=== PATIENT | male | born 1980 | race Two or more races ===

== ENCOUNTER 2018-06-28 07:58 | Inpatient (IN) | payer SELFPAY ==
[~2018-06-28] VITALS: Ht 165.1 cm; Wt 92.1 kg
--- NOTE | 2018-06-28 08:42 | PHYS DOC ---
Past Medical History Past Medical History: Diabetes-Type II, Hypertension Past Surgical History: No Surgical History Alcohol Use: Heavy Drug Use: None Adult General Chief Complaint Chief Complaint: ABDOMINAL PAIN HPI HPI Patient is a 38 year old Male who presents with vomiting, dizziness, tremors started yesterday. Patient states that he drinks 10-12 beers a day he's been given the last 2 weeks. Patient states that in the past he has had a problem drinking but hadn't been drinking much. Patient rates his pain 8 out of 10 and states it is burning pain. Review of Systems Review of Systems Constitutional: Denies fever or chills [] Eyes: Denies change in visual acuity, redness, or eye pain [] HENT: Denies nasal congestion or sore throat [] Respiratory: Denies cough or shortness of breath [] Cardiovascular: No additional information not addressed in HPI [] GI: Abdominal pain, nausea, vomiting. Denies bloody stools or diarrhea [] : Denies dysuria or hematuria [] Musculoskeletal: Denies back pain or joint pain [] Integument: Denies rash or skin lesions [] Neurologic: Denies headache, focal weakness or sensory changes. Tremors and numbness and tingling. [] Endocrine: Denies polyuria or polydipsia [] All other systems were reviewed and found to be within normal limits, except as documented in this note. Current Medications Current Medications Current Medications Medications (Trade) Dose Ordered Sig/Meek Start Time Stop Time Status Last Admin Dose Admin Chlordiazepoxide (Librium) 50 mg 1X ONCE 06/28/18 09:00 06/28/18 09:01 DC 06/28/18 09:17 50 MG Famotidine (Pepcid Vial) 20 mg 1X ONCE 06/28/18 09:00 06/28/18 09:01 DC 06/28/18 09:17 20 MG Magnesium Sulfate 50 ml @ 25 mls/hr 1X ONCE 06/28/18 11:30 06/28/18 13:29 Ondansetron HCl (Zofran) 4 mg 1X ONCE 06/28/18 09:00 06/28/18 09:01 DC 06/28/18 09:17 4 MG Allergies Allergies Allergies Coded Allergies Type Severity Reaction Last Updated Verified No Known Drug Allergies 02/11/15 No Physical Exam Physical Exam Constitutional: Well developed, well nourished, no acute distress, non-toxic appearance. [] HENT: Normocephalic, atraumatic, bilateral external ears normal, oropharynx moist, no oral exudates, nose normal. [] Eyes: PERRLA, EOMI, conjunctiva normal, no discharge. [] Neck: Normal range of motion, no tenderness, supple, no stridor. [] Cardiovascular:Heart rate regular rhythm, no murmur [] Lungs & Thorax: Bilateral breath sounds clear to auscultation [] Abdomen: Bowel sounds normal, soft, Bilateral upper abdominal and left lower tenderness, no masses, no pulsatile masses. [] Skin: Warm, dry, no erythema, no rash. Slightly diaphoretic. Back: No tenderness, no CVA tenderness. [] Extremities: No tenderness, no cyanosis, no clubbing, ROM intact, no edema. [] Neurologic: Alert and oriented X 3, normal motor function, normal sensory function, no focal deficits noted. Intermittent tremors.[] Psychologic: Affect normal, judgement normal, mood normal. [] Current Patient Data Vital Signs Vital Signs Date Time Temp Pulse Resp B/P (MAP) Pulse Ox O2 Delivery O2 Flow Rate FiO2 06/28/18 10:24 86 26 149/84 (105) 95 Room Air 06/28/18 08:23 99.0 99.0 Lab Values Laboratory Tests Test 06/28/18 08:38 06/28/18 08:40 06/28/18 09:28 Prothrombin Time 18.0 SEC (11.7-14.0) H Prothrombin Time INR 1.6 (0.8-1.1) H PTT 43 SEC (24-38) H White Blood Count 3.2 x10^3/uL (4.0-11.0) L Red Blood Count 4.89 x10^6/uL (4.30-5.70) Hemoglobin 16.5 g/dL (13.0-17.5) Hematocrit 46.8 % (39.0-53.0) Mean Corpuscular Volume 96 fL (79-100) Mean Corpuscular Hemoglobin 34 pg (25-35) Mean Corpuscular Hemoglobin Concent 35 g/dL (31-37) Red Cell Distribution Width 15.1 % (11.5-14.5) H Platelet Count 39 x10^3/uL (140-400) L Neutrophils (%) (Auto) 53 % (31-73) Lymphocytes (%) (Auto) 39 % (24-48) Monocytes (%) (Auto) 7 % (0-9) Eosinophils (%) (Auto) 0 % (0-3) Basophils (%) (Auto) 1 % (0-3) Neutrophils # (Auto) 1.7 x10^3uL (1.8-7.7) L Lymphocytes # (Auto) 1.2 x10^3/uL (1.0-4.8) Monocytes # (Auto) 0.2 x10^3/uL (0.0-1.1) Eosinophils # (Auto) 0.0 x10^3/uL (0.0-0.7) Basophils # (Auto) 0.0 x10^3/uL (0.0-0.2) Sodium Level 134 mmol/L (136-145) L Potassium Level 3.7 mmol/L (3.5-5.1) Chloride Level 97 mmol/L (98-107) L Carbon Dioxide Level 25 mmol/L (21-32) Anion Gap 12 (6-14) Blood Urea Nitrogen 5 mg/dL (8-26) L Creatinine 0.6 mg/dL (0.7-1.3) L Estimated GFR (Cockcroft-Gault) 150.0 BUN/Creatinine Ratio 8 (6-20) Glucose Level 278 mg/dL (70-99) H Calcium Level 7.7 mg/dL (8.5-10.1) L Magnesium Level 1.7 mg/dL (1.8-2.4) L Total Bilirubin 2.7 mg/dL (0.2-1.0) H Aspartate Amino Transferase (AST) 165 U/L (15-37) H Alanine Aminotransferase (ALT) 133 U/L (16-63) H Alkaline Phosphatase 198 U/L (46-116) H Total Protein 8.3 g/dL (6.4-8.2) H Albumin 3.4 g/dL (3.4-5.0) Albumin/Globulin Ratio 0.7 (1.0-1.7) L Lipase 147 U/L (73-393) Ethyl Alcohol Level 107 mg/dL (0-10) H Urine Collection Type Void Urine Color Hannah Urine Clarity Clear Urine pH 7.5 Urine Specific [place] 1.015 Urine Protein 100 mg/dL (NEG-TRACE) Urine Glucose (UA) 500 mg/dL (NEG) Urine Ketones (Stick) Negative mg/dL (NEG) Urine Blood Negative (NEG) Urine Nitrite Negative (NEG) Urine Bilirubin Negative (NEG) Urine Urobilinogen Dipstick 1.0 mg/dL (0.2 mg/dL) Urine Leukocyte Esterase Negative (NEG) Urine RBC 0 /HPF (0-2) Urine WBC Occ /HPF (0-4) Urine Bacteria 0 /HPF (0-FEW) Urine Opiates Screen Neg (NEG) Urine Methadone Screen Neg (NEG) Urine Barbiturates Neg (NEG) Urine Phencyclidine Screen Neg (NEG) Urine Amphetamine/Methamphetamine Neg (NEG) Urine Benzodiazepines Screen Neg (NEG) Urine Cocaine Screen Neg (NEG) Urine Cannabinoids Screen Neg (NEG) Urine Ethyl Alcohol Pos (NEG) Laboratory Tests 06/28/18 08:40 Laboratory Tests 06/28/18 08:40 EKG EKG Sinus Rhythm, No STEMI[] Interpretation Time: [address] Anne Radiology/Procedures Radiology/Procedures [facility] Impressions: [facility] [address] [place] [address] IMAGING REPORT Signed PATIENT: DARRICK SANTILLAN ACCOUNT: [id number] : 1980 LOCATION: ER AGE: 38 SEX: M EXAM STATUS: REG ER ORD. PHYSICIAN: ARCHANA DELGADO APRN REASON: ETOH/ ELEVATED LIVER ENZYMES PROCEDURE: ABDOMEN COMPLETE ABDOMEN COMPLETE History: EtOH, elevated liver enzymes Comparison: None. Findings: Multiple sonographic images of the abdomen are submitted. There is diffuse coarsening of the echotexture of the liver. Abdominal aorta and inferior vena cava are poorly visualized due to bowel gas, limited segmental visualization of the inferior vena cava. Right lobe of liver is enlarged about 22 cm longitudinal. Pancreas is poorly visualized. Right kidney measured 13.6 x 6 x 5.5 cm. Left kidney measured 14.2 x 6.4 x 7.3 cm. There is no hydronephrosis of either kidney. Gallbladder is present without intraluminal abnormality, wall thickening, demonstrable pericholecystic fluid. Common bile duct is within normal limits at 0.5 cm. Spleen is enlarged about 16.2 x 5.8 x 5.6 m. No free fluid is demonstrated. Impression: 1. There is hepatosplenomegaly. There is hepatic steatosis. 2. Midline structures are poorly visualized due to bowel gas. Electronically signed by: Lesvia Clemente MD (06/28/2018 10:50 AM) [id number] DICTATED and SIGNED BY: LESVIA CLEMENTE MD DATE: 06/28/18 1048 Course & Med Decision Making Course & Med Decision Making Patient is a 38 year old Male who presents with vomiting, dizziness, tremors started yesterday. Patient states that he drinks 10-12 beers a day he's been given the last 2 weeks. Patient states that in the past he has had a problem drinking but hadn't been drinking much. Patient rates his pain 8 out of 10 and states it is burning pain. Patient has bilateral upper abdominal tenderness and lower left abdominal tenderness. Patient had a bowel movement yesterday that was normal for him. Patient is alert and oriented. Patient walks with steady gait. Patient does not have tremors and a half states his hand straight out. Patient is neurologically intact. Patient denies any numbness or tingling. Patient denies any chest pain or shortness of air. Patient has no extremity edema. Patient states he does take antihypertensive medication that he can't remember what else called and takes insulin. Patient denies any drug allergies. Patient denies any other past medical history or surgeries. Patient's skin is pink warm and slightly diaphoretic. sclera of bilateral eyes are yellow tinged. In the room patient's head began to tremor but only came intermittently. Patient denies any visual changes. EKG shows Sinus rhythm and no STEMI and was read by Dr Anne. Patient is given NS Bolus, Librium, Ondansetron and Pepcid in the ED. ETOH level is 107. Abdomen US complete shows 1. There is hepatosplenomegaly. There is hepatic steatosis. 2. Midline structures are poorly visualized due to bowel gas. PT IS 18, INR 1.6, APTT 43. Patient to be admitted and will follow up with GI. Patient is alert, oriented. and stable. I did go over this patient with Dr Anne and he agrees with admission. [] Dragon Disclaimer Dragon Disclaimer This electronic medical record was generated, in whole or in part, using a voice recognition dictation system. Departure Departure Impression: Primary Impression: Alcohol abuse Additional Impression: Liver enzyme elevation Disposition: ADMITTED INPATIENT Condition: STABLE Referrals: NO PCP (PCP) TRAM BLAS MD Patient Instructions: Alcohol Problems, Alcohol Withdrawal, Alcoholic Liver Disease, [id number] Additional Instructions: FOLLOW UP WITH GI. DO NOT DRINK ANYMORE ETOH. Problem Qualifiers ARCHANA DELGADO FORK LIFT TRUCK OPERATOR Jun 28, 2018 08:42
[2018-06-28] MEDS ORDERED: FAMOTIDINE 20 MG/2 ML VIAL IVP ONE (09:00)
[2018-06-28] MEDS ORDERED: chlordiazePOXIDE HCL 25 MG CAPSULE PO ONE (09:00)
[2018-06-28] MEDS ORDERED: ONDANSETRON PF 4 MG/2 ML VIAL. IV ONE (09:00)
[2018-06-28 09:04] LABS: CALCIUM 7.7 mg/dL (8.5-10.1); CREATININE 0.6 mg/dL (0.7-1.3); POTASSIUM 3.7 mmol/L (3.5-5.1)
[2018-06-28 09:10] LABS: ALBUMIN 3.4 g/dL (3.4-5.0); ALBUMIN/GLOBULIN RATIO 0.7 (1.0-1.7); MAGNESIUM 1.7 mg/dL (1.8-2.4); TOTAL BILIRUBIN 2.7 mg/dL (0.2-1.0); TOTAL PROTEIN 8.3 g/dL (6.4-8.2)
[2018-06-28 09:17] LABS: BASO % 1 % (0-3); EOS % 0 % (0-3); HEMATOCRIT 46.8 % (39.0-53.0); HEMOGLOBIN 16.5 g/dL (13.0-17.5); LYMPH # 1.2 x10^3/uL (1.0-4.8); LYMPH % 39 % (24-48); MEAN CORPUSCULAR HEMOGLOBIN 34 pg (25-35); MEAN CORPUSCULAR HGB CONC 35 g/dL (31-37); MEAN CORPUSCULAR VOLUME 96 fL (79-100); MONO # 0.2 x10^3/uL (0.0-1.1); MONO % 7 % (0-9); NEUT # 1.7 x10^3uL (1.8-7.7); NEUT % 53 % (31-73); PLATELET COUNT 39 x10^3/uL (140-400); RED BLOOD COUNT 4.89 x10^6/uL (4.30-5.70); RED CELL DISTRIBUTION WIDTH 15.1 % (11.5-14.5); WHITE BLOOD COUNT 3.2 x10^3/uL (4.0-11.0)
[2018-06-28 09:49] LABS: BARBITURATES NEG (NEG); BENZODIAZEPINES NEG (NEG); CANNABINOIDS NEG (NEG); COCAINE NEG (NEG); METHADONE NEG (NEG); OPIATES NEG (NEG); PHENCYCLIDINE NEG (NEG)
[2018-06-28 09:50] LABS: AMPHETAMINE/METHAMPHETAMINE NEG (NEG)
[2018-06-28 09:55] LABS: BILIRUBIN,URINE NEGATIVE (NEG); CLARITY,URINE CLEAR; COLOR,URINE AMBER; NITRITE,URINE NEGATIVE (NEG); PH,URINE 7.5; PROTEIN,URINE 100 mg/dL (NEG-TRACE)
[2018-06-28 10:13] LABS: BACTERIA,URINE 0 /HPF (0-FEW); RBC,URINE 0 /HPF (0-2); WBC,URINE OCC /HPF (0-4)
--- NOTE | 2018-06-28 10:54 | RAD ---
ABDOMEN COMPLETE History: EtOH, elevated liver enzymes Comparison: None. Findings: Multiple sonographic images of the abdomen are submitted. There is diffuse coarsening of the echotexture of the liver. Abdominal aorta and inferior vena cava are poorly visualized due to bowel gas, limited segmental visualization of the inferior vena cava. Right lobe of liver is enlarged about 22 cm longitudinal. Pancreas is poorly visualized. Right kidney measured 13.6 x 6 x 5.5 cm. Left kidney measured 14.2 x 6.4 x 7.3 cm. There is no hydronephrosis of either kidney. Gallbladder is present without intraluminal abnormality, wall thickening, demonstrable pericholecystic fluid. Common bile duct is within normal limits at 0.5 cm. Spleen is enlarged about 16.2 x 5.8 x 5.6 m. No free fluid is demonstrated. Impression: 1. There is hepatosplenomegaly. There is hepatic steatosis. 2. Midline structures are poorly visualized due to bowel gas. Electronically signed by: Valentino Thapa MD (06/28/2018 10:50 AM) [id number]
[2018-06-28] MEDS ORDERED: MAGNESIUM SULFATE 2GM 50 ML IV ONE (11:30)
[2018-06-28] MEDS ORDERED: ONDANSETRON PF 4 MG/2 ML VIAL. IV PRN (11:30)
--- NOTE | 2018-06-28 13:29 | EKG ---
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
--- NOTE | 2018-06-28 14:41 | PDOC2 ---
GI CONSULT Reason For Consult: Liver failure HPI: HPI: 38 y/o male. H/o heavy alcohol use in the past - has stopped drinking a few times, recently restarted and was drinking 10 beers a day x 10 days. Last drink was Thursday. Yesterday felt dizzy, had a headaches, vomited, had abd pain, and felt shaky. Came to ER for eval and was admitted. WBC 3.2, plt 39, INR 1.6, bili 2.7, AST 165, ALT 133, Alk Phos 198, ethyl alcohol 107. US: hepatosplenomegaly and hepatic steatosis w/ normal GB and CBD. Typically no issues w/ n/v or abd pain. Appetite and weight stable prior to onset of symptoms. Denies reflux/heartburn, dysphagia, diarrhea, constipation, hematemesis, hematochezia, melena. No NSAIDs. No GB, liver, or pancreas history. No previous EGD or colonoscopy. No NSAIDs. Says had labs as outpt last month and believes all were WNL. 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 PMH: PMH: HTN, IDDM FH: Family History: No pertinent hx (deneis GI cancers, liver disease) Social History: Smoke: No ALCOHOL: heavy Drugs: None ROS: GEN: +sweats HEENT: Denies blurred vision, sore throat CV: Denies chest pain RESP: Denies shortness of air, cough GI: Per HPI : Denies hematuria, dysuria ENDO: Denies weight changes NEURO: +dizziness MSK: +weakness SKIN: Denies jaundice, pruritus Vitals: Vitals: Vital Signs Date Time Temp Pulse Resp B/P (MAP) Pulse Ox O2 Delivery O2 Flow Rate FiO2 06/28/18 11:54 84 22 176/95 (122) 96 Room Air 06/28/18 08:23 99.0 99.0 Labs: Labs: Laboratory Tests Test 06/28/18 08:38 06/28/18 08:40 06/28/18 09:28 Prothrombin Time 18.0 SEC (11.7-14.0) Prothromb Time International Ratio 1.6 (0.8-1.1) Activated Partial Thromboplast Time 43 SEC (24-38) White Blood Count 3.2 x10^3/uL (4.0-11.0) Red Blood Count 4.89 x10^6/uL (4.30-5.70) Hemoglobin 16.5 g/dL (13.0-17.5) Hematocrit 46.8 % (39.0-53.0) Mean Corpuscular Volume 96 fL (79-100) Mean Corpuscular Hemoglobin 34 pg (25-35) Mean Corpuscular Hemoglobin Concent 35 g/dL (31-37) Red Cell Distribution Width 15.1 % (11.5-14.5) Platelet Count 39 x10^3/uL (140-400) Neutrophils (%) (Auto) 53 % (31-73) Lymphocytes (%) (Auto) 39 % (24-48) Monocytes (%) (Auto) 7 % (0-9) Eosinophils (%) (Auto) 0 % (0-3) Basophils (%) (Auto) 1 % (0-3) Neutrophils # (Auto) 1.7 x10^3uL (1.8-7.7) Lymphocytes # (Auto) 1.2 x10^3/uL (1.0-4.8) Monocytes # (Auto) 0.2 x10^3/uL (0.0-1.1) Eosinophils # (Auto) 0.0 x10^3/uL (0.0-0.7) Basophils # (Auto) 0.0 x10^3/uL (0.0-0.2) Sodium Level 134 mmol/L (136-145) Potassium Level 3.7 mmol/L (3.5-5.1) Chloride Level 97 mmol/L (98-107) Carbon Dioxide Level 25 mmol/L (21-32) Anion Gap 12 (6-14) Blood Urea Nitrogen 5 mg/dL (8-26) Creatinine 0.6 mg/dL (0.7-1.3) Estimated GFR (Cockcroft-Gault) 150.0 BUN/Creatinine Ratio 8 (6-20) Glucose Level 278 mg/dL (70-99) Calcium Level 7.7 mg/dL (8.5-10.1) Magnesium Level 1.7 mg/dL (1.8-2.4) Total Bilirubin 2.7 mg/dL (0.2-1.0) Aspartate Amino Transf (AST/SGOT) 165 U/L (15-37) Alanine Aminotransferase (ALT/SGPT) 133 U/L (16-63) Alkaline Phosphatase 198 U/L (46-116) Total Protein 8.3 g/dL (6.4-8.2) Albumin 3.4 g/dL (3.4-5.0) Albumin/Globulin Ratio 0.7 (1.0-1.7) Lipase 147 U/L (73-393) Ethyl Alcohol Level 107 mg/dL (0-10) Urine Collection Type Void Urine Color Hannah Urine Clarity Clear Urine pH 7.5 Urine Specific [place] 1.015 Urine Protein 100 mg/dL (NEG-TRACE) Urine Glucose (UA) 500 mg/dL (NEG) Urine Ketones (Stick) Negative mg/dL (NEG) Urine Blood Negative (NEG) Urine Nitrite Negative (NEG) Urine Bilirubin Negative (NEG) Urine Urobilinogen Dipstick 1.0 mg/dL (0.2 mg/dL) Urine Leukocyte Esterase Negative (NEG) Urine RBC 0 /HPF (0-2) Urine WBC Occ /HPF (0-4) Urine Bacteria 0 /HPF (0-FEW) Urine Opiates Screen Neg (NEG) Urine Methadone Screen Neg (NEG) Urine Barbiturates Neg (NEG) Urine Phencyclidine Screen Neg (NEG) Urine Amphetamine/Methamphetamine Neg (NEG) Urine Benzodiazepines Screen Neg (NEG) Urine Cocaine Screen Neg (NEG) Urine Cannabinoids Screen Neg (NEG) Urine Ethyl Alcohol Pos (NEG) Allergies: Coded Allergies: No Known Drug Allergies (Unverified , 02/11/15) Medications: Current Medications Medications (Trade) Dose Ordered Sig/Meek Route PRN Reason Start Time Stop Time Status Last Admin Dose Admin Ondansetron HCl (Zofran) 4 mg 1X ONCE IV 06/28/18 09:00 06/28/18 09:01 DC 06/28/18 09:17 Famotidine (Pepcid Vial) 20 mg 1X ONCE IVP 06/28/18 09:00 06/28/18 09:01 DC 06/28/18 09:17 Chlordiazepoxide (Librium) 50 mg 1X ONCE PO 06/28/18 09:00 06/28/18 09:01 DC 06/28/18 09:17 Magnesium Sulfate 50 ml @ 25 mls/hr 1X ONCE IV 06/28/18 11:30 06/28/18 13:29 DC 06/28/18 11:44 Imaging: Imaging: Abd US Findings: Multiple sonographic images of the abdomen are submitted. There is diffuse coarsening of the echotexture of the liver. Abdominal aorta and inferior vena cava are poorly visualized due to bowel gas, limited segmental visualization of the inferior vena cava. Right lobe of liver is enlarged about 22 cm longitudinal. Pancreas is poorly visualized. Right kidney measured 13.6 x 6 x 5.5 cm. Left kidney measured 14.2 x 6.4 x 7.3 cm. There is no hydronephrosis of either kidney. Gallbladder is present without intraluminal abnormality, wall thickening, demonstrable pericholecystic fluid. Common bile duct is within normal limits at 0.5 cm. Spleen is enlarged about 16.2 x 5.8 x 5.6 m. No free fluid is demonstrated. Impression: 1. There is hepatosplenomegaly. There is hepatic steatosis. 2. Midline structures are poorly visualized due to bowel gas. PE: GEN: NAD HEENT: Atraumatic, PERRL LUNGS: CTAB HEART: RRR ABD: NABS, S/ND/NT EXTREMITY: No edema SKIN: No rashes, no jaundice NEURO/PSYCH: A & O 3, anxious A/P: A/P: Dizziness, headache, vomiting, abd pain - better Alcohol abuse -labs note leukopenia, thrombocytopenia, coagulopathy, elevated LFTs -hepatic steatosis and hepatomegaly on US HTN, IDDM - per primary -- Withdrawal precautions, follow labs. 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 Needs to stop drinking. FRANNY REY Jun 28, 2018 14:41
[2018-06-28 15:19] VITALS: BP 153/39
[2018-06-28] MEDS: PANTOPRAZOLE 40 MG TABLET.DR. PO SCH (15:55)
[2018-06-28] MEDS: THIAMINE 100 MG TABLET. PO SCH (16:00)
[2018-06-28] MEDS: fentaNYL PF VIAL 100 MCG/2 ML VIAL IV PRN ×2 (16:01→21:02)
[2018-06-28 19:00] VITALS: BP 163/92
[2018-06-28] MEDS ORDERED: NPH,100V5 SQ (19:32)
[2018-06-28] MEDS ORDERED: LISI10TA2 PO (19:32)
[2018-06-28] MEDS: INSULIN GLARGINE 300 UNITS/3 ML INSULN.PEN. SQ SCH (21:00)
[2018-06-28 23:00] VITALS: BP 146/92
[2018-06-29 03:00] VITALS: BP 145/93
[2018-06-29 04:39] LABS: BASO % 1 % (0-3); EOS # 0.1 x10^3/uL (0.0-0.7); EOS % 2 % (0-3); HEMATOCRIT 46.7 % (39.0-53.0); HEMOGLOBIN 16.6 g/dL (13.0-17.5); LYMPH # 1.8 x10^3/uL (1.0-4.8); LYMPH % 45 % (24-48); MEAN CORPUSCULAR HEMOGLOBIN 35 pg (25-35); MEAN CORPUSCULAR HGB CONC 36 g/dL (31-37); MEAN CORPUSCULAR VOLUME 97 fL (79-100); MONO # 0.3 x10^3/uL (0.0-1.1); MONO % 8 % (0-9); NEUT # 1.8 x10^3uL (1.8-7.7); NEUT % 45 % (31-73); PLATELET COUNT 34 x10^3/uL (140-400); RED BLOOD COUNT 4.81 x10^6/uL (4.30-5.70); RED CELL DISTRIBUTION WIDTH 15.6 % (11.5-14.5)
[2018-06-29 05:14] LABS: ALBUMIN 3.2 g/dL (3.4-5.0); ALBUMIN/GLOBULIN RATIO 0.7 (1.0-1.7); CALCIUM 8.1 mg/dL (8.5-10.1); CREATININE 0.7 mg/dL (0.7-1.3); GFR 125.5; POTASSIUM 3.4 mmol/L (3.5-5.1); TOTAL BILIRUBIN 4.3 mg/dL (0.2-1.0); TOTAL PROTEIN 8.1 g/dL (6.4-8.2)
[2018-06-29 07:00] VITALS: BP 148/89
[2018-06-29] MEDS ORDERED: LISINOPRIL 10 MG TABLET PO SCH (09:00)
[2018-06-29] MEDS ORDERED: ONDANSETRON PF 4 MG/2 ML VIAL. IV PRN (09:15)
[2018-06-29] MEDS ORDERED: chlordiazePOXIDE HCL 25 MG CAPSULE PO PRN (09:15)
[2018-06-29] MEDS ORDERED: POTASSIUM CHLORIDE 20 MEQ TABLET.ER. PO ONE (09:15)
[2018-06-29] MEDS ORDERED: IBUPROFEN 200 MG TABLET. PO PRN (09:15)
[2018-06-29] MEDS ORDERED: ZOLPIDEM 5 MG TABLET. PO PRN (09:15)
[2018-06-29] MEDS ORDERED: NICOTINE 21MG PATCH. TD PRN (09:15)
[2018-06-29] MEDS ORDERED: ONDANSETRON ODT 4 MG TAB.RAPDIS. PO PRN (09:15)
[2018-06-29] MEDS ORDERED: DEXTROSE 50% 25 GM / 50ML DISP.SYRIN. IV PRN (09:30)
[2018-06-29] MEDS: PANTOPRAZOLE 40 MG TABLET.DR. PO SCH (09:52)
[2018-06-29] MEDS: THIAMINE 100 MG TABLET. PO SCH (09:52)
[2018-06-29] MEDS ORDERED: FOLIC ACID 1 MG TABLET. PO SCH (10:00)
[2018-06-29] MEDS ORDERED: MAGNESIUM SULFATE 2GM 50 ML IV ONE (10:00)
[2018-06-29] MEDS ORDERED: MULTIVITAMIN with MINERAL TABLET. PO SCH (10:00)
[2018-06-29] MEDS: INSULIN GLARGINE 300 UNITS/3 ML INSULN.PEN. SQ SCH (10:02)
[2018-06-29 10:57] VITALS: BP 145/85
[2018-06-29] MEDS ORDERED: MULT1TAB90 PO (11:56)
[2018-06-29] MEDS ORDERED: CHLO25CA9 PO (11:56)
[2018-06-29] MEDS ORDERED: FOLI1TAB16 PO (11:56)
[2018-06-29] MEDS ORDERED: THIA100T22 PO (11:56)
[2018-06-29] MEDS ORDERED: INSULIN LISPRO 300 UNITS/3 ML INSULN.PEN. SQ SCH (12:00)
--- NOTE | 2018-06-29 12:04 | PDOC1 ---
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 Admitted because of alcohol abuse. seems frustrated, she claims to me "who knows maybe he drinks more than 100 beers a day!". Denies rec drug use or signif cigarettes. Labs remarkable for signs of chronic alcoholism including white count of 4, platelets 34 but no bleeding, AST ALT in the high 100s, GI consulted advised alcohol cessation and a PPI. Also mild hyponatremia 134 with mild hypokalemia 3.4. Magnesium slightly low 1.7 I'm replacing. Gait steady, no more shaking. I started MVI thiamine folate and MVI Rx on chart. Gait steady. Okay to discharge with alcohol cessation done today one-on-one. Past Medical History Cardiovascular: HTN Endocrine: Diabetes Past Surgical History Past Surgical History: No pertinent history Family History Family History: Family History Unknown Social History Smoke: No ALCOHOL: heavy Drugs: None Current Problem List Problem List Problems Medical Problems: (1) Alcohol abuse Status: Acute (2) Liver enzyme elevation Status: Acute Current Medications Current Medications Current Medications Ondansetron HCl (Zofran) 4 mg 1X ONCE IV Last administered on 06/28/18at 09:17 ; Start 06/28/18 at 09:00; Stop 06/28/18 at 09:01; Status DC Famotidine (Pepcid Vial) 20 mg 1X ONCE IVP Last administered on 06/28/18at 09: 17; Start 06/28/18 at 09:00; Stop 06/28/18 at 09:01; Status DC Chlordiazepoxide (Librium) 50 mg 1X ONCE PO Last administered on 06/28/18at 09: 17; Start 06/28/18 at 09:00; Stop 06/28/18 at 09:01; Status DC Magnesium Sulfate 50 ml @ 25 mls/hr 1X ONCE IV Last administered on 06/28/18at 11:44; Start 06/28/18 at 11:30; Stop 06/28/18 at 13:29; Status DC Ondansetron HCl (Zofran) 4 mg PRN Q8HRS PRN IV NAUSEA/VOMITING Last administered on 06/28/18at 15:54; Start 06/28/18 at 11:30; Stop 06/29/18 at 11:29 ; Status DC Fentanyl Citrate (Fentanyl 2ml Vial) 50 mcg PRN Q2HR PRN IV PAIN Last administered on 06/28/18at 21:02; Start 06/28/18 at 11:30; Stop 06/29/18 at 11:29 ; Status DC Pantoprazole Sodium (Protonix) 40 mg DAILYAC PO Last administered on 06/29/18 09:52; Start 06/28/18 at 15:00 Thiamine Mononitrate (Vitamin B-1) 100 mg DAILY PO Last administered on 09:52; Start 06/28/18 at 16:00 Lisinopril (Prinivil) 10 mg DAILY PO Last administered on 06/29/18at 09:51; Start 06/29/18 at 09:00 Insulin Glargine (Lantus) 25 units BID SQ Last administered on 06/29/18at 10:02 ; Start 06/28/18 at 21:00 Folic Acid (Folic Acid) 1 mg DAILY PO Last administered on 06/29/18at 09:57; Start 06/29/18 at 10:00 Ondansetron HCl (Zofran) 4 mg PRN Q6HRS PRN IV NAUSEA/VOMITING; Start 06/29/18 at 09:15 Ondansetron HCl (Zofran Odt) 4 mg PRN Q6HRS PRN PO NAUSEA/VOMITING; Start 06/29 at 09:15 Ibuprofen (Motrin) 600 mg PRN Q6HRS PRN PO INFLAMMATION; Start 06/29/18 at 09: 15 Nicotine (Nicoderm Cq 21mg) 1 patch PRN DAILY PRN TD SMOKING CESSATION; Start 06/29/18 at 09:15 Chlordiazepoxide (Librium) 25 mg PRN Q6HRS PRN PO ANXIETY / AGITATION; Start at 09:15 Multivitamins (Thera M Plus) 1 tab DAILY PO Last administered on 06/29/18at 09: 57; Start 06/29/18 at 10:00 Magnesium Sulfate 50 ml @ 25 mls/hr 1X ONCE IV Last administered on 06/29/18at 09:52; Start 06/29/18 at 10:00; Stop 06/29/18 at 11:59 Potassium Chloride (Klor-Con) 40 meq 1X ONCE PO Last administered on at 09:51; Start 06/29/18 at 09:15; Stop 06/29/18 at 09:19; Status DC Potassium Chloride (Klor-Con) 40 meq DAILYWBKFT PO ; Start 06/30/18 at 08:00 Zolpidem Tartrate (Ambien) 5 mg PRN QHS PRN PO INSOMNIA, MAY REPEAT IN 1HR; Start 06/29/18 at 09:15 Insulin Human Lispro (HumaLOG) 0-9 UNITS TIDWMEALS SQ ; Start 06/29/18 at 12:00 Dextrose (Dextrose 50%-Water Syringe) 12.5 gm PRN Q15MIN PRN IV SEE COMMENTS; Start 06/29/18 at 09:30 Active Scripts Active Thera-M Tablet (Multivits,Ca,Minerals/Iron/Fa) 1 Each Tablet 1 Tab PO DAILY 30 Days Vitamin B-1 (Thiamine Mononitrate) 100 Mg Tablet 100 Mg PO DAILY 30 Days Folic Acid 1 Mg Tablet 1 Mg PO DAILY 30 Days Chlordiazepoxide Hcl 25 Mg Capsule 25 Mg PO PRN Q6HRS PRN 30 Days Reported Novolin N (Nph, Human Insulin Isophane) 100 Unit/1 Ml Vial 25 Unit SQ BID Lisinopril 10 Mg Tablet 1 Tab PO DAILY Allergies Allergies: Coded Allergies: No Known Drug Allergies (Unverified , 02/11/15) ROS Review of System No nausea vomiting, minimal abdominal pain otherwise rest of 14 point ROS negative Physical Exam General: Alert, Oriented X3, Cooperative, No acute distress HEENT: Atraumatic, PERRLA, EOMI, Mucous membr. moist/pink Lungs: Clear to auscultation, Normal air movement Heart: S1S2, RRR, no thrills, no rubs Cardiovascular: S1, S2 Abdomen: Normal bowel sounds, Soft, No tenderness, No hepatosplenomegaly, No masses Male Genitals Exam: normal genitalia, normal prostate Rectal Exam: not examined PELVIC: Nml ext genitalia Extremities: No clubbing, No cyanosis, No edema, Normal pulses, No tenderness/ swelling Skin: No rashes, No breakdown, No significant lesion Neuro: Normal gait, Normal speech, Strength at 5/5 X4 ext, Normal tone, Sensation intact, Cranial nerves 3-12 NL, Reflexes 2+ Psych/Mental Status: Mental status NL, Mood NL Vitals Vitals Vital Signs Date Time Temp Pulse Resp B/P (MAP) Pulse Ox O2 Delivery O2 Flow Rate FiO2 06/29/18 10:57 98.0 75 16 145/85 (105) 97 Room Air 98.0 Labs Labs Laboratory Tests Test 06/28/18 08:38 06/28/18 08:40 06/28/18 09:28 06/28/18 17:04 Prothrombin Time 18.0 SEC (11.7-14.0) Prothromb Time International Ratio 1.6 (0.8-1.1) Activated Partial Thromboplast Time 43 SEC (24-38) White Blood Count 3.2 x10^3/uL (4.0-11.0) Red Blood Count 4.89 x10^6/uL (4.30-5.70) Hemoglobin 16.5 g/dL (13.0-17.5) Hematocrit 46.8 % (39.0-53.0) Mean Corpuscular Volume 96 fL (79-100) Mean Corpuscular Hemoglobin 34 pg (25-35) Mean Corpuscular Hemoglobin Concent 35 g/dL (31-37) Red Cell Distribution Width 15.1 % (11.5-14.5) Platelet Count 39 x10^3/uL (140-400) Neutrophils (%) (Auto) 53 % (31-73) Lymphocytes (%) (Auto) 39 % (24-48) Monocytes (%) (Auto) 7 % (0-9) Eosinophils (%) (Auto) 0 % (0-3) Basophils (%) (Auto) 1 % (0-3) Neutrophils # (Auto) 1.7 x10^3uL (1.8-7.7) Lymphocytes # (Auto) 1.2 x10^3/uL (1.0-4.8) Monocytes # (Auto) 0.2 x10^3/uL (0.0-1.1) Eosinophils # (Auto) 0.0 x10^3/uL (0.0-0.7) Basophils # (Auto) 0.0 x10^3/uL (0.0-0.2) Sodium Level 134 mmol/L (136-145) Potassium Level 3.7 mmol/L (3.5-5.1) Chloride Level 97 mmol/L (98-107) Carbon Dioxide Level 25 mmol/L (21-32) Anion Gap 12 (6-14) Blood Urea Nitrogen 5 mg/dL (8-26) Creatinine 0.6 mg/dL (0.7-1.3) Estimated GFR (Cockcroft-Gault) 150.0 BUN/Creatinine Ratio 8 (6-20) Glucose Level 278 mg/dL (70-99) Calcium Level 7.7 mg/dL (8.5-10.1) Magnesium Level 1.7 mg/dL (1.8-2.4) Total Bilirubin 2.7 mg/dL (0.2-1.0) Aspartate Amino Transf (AST/SGOT) 165 U/L (15-37) Alanine Aminotransferase (ALT/SGPT) 133 U/L (16-63) Alkaline Phosphatase 198 U/L (46-116) Total Protein 8.3 g/dL (6.4-8.2) Albumin 3.4 g/dL (3.4-5.0) Albumin/Globulin Ratio 0.7 (1.0-1.7) Lipase 147 U/L (73-393) Ethyl Alcohol Level 107 mg/dL (0-10) Urine Collection Type Void Urine Color Hannah Urine Clarity Clear Urine pH 7.5 Urine Specific [place] 1.015 Urine Protein 100 mg/dL (NEG-TRACE) Urine Glucose (UA) 500 mg/dL (NEG) Urine Ketones (Stick) Negative mg/dL (NEG) Urine Blood Negative (NEG) Urine Nitrite Negative (NEG) Urine Bilirubin Negative (NEG) Urine Urobilinogen Dipstick 1.0 mg/dL (0.2 mg/dL) Urine Leukocyte Esterase Negative (NEG) Urine RBC 0 /HPF (0-2) Urine WBC Occ /HPF (0-4) Urine Bacteria 0 /HPF (0-FEW) Urine Opiates Screen Neg (NEG) Urine Methadone Screen Neg (NEG) Urine Barbiturates Neg (NEG) Urine Phencyclidine Screen Neg (NEG) Urine Amphetamine/Methamphetamine Neg (NEG) Urine Benzodiazepines Screen Neg (NEG) Urine Cocaine Screen Neg (NEG) Urine Cannabinoids Screen Neg (NEG) Urine Ethyl Alcohol Pos (NEG) Glucose (Fingerstick) 155 mg/dL (70-99) Test 06/28/18 20:44 06/29/18 02:55 06/29/18 06:58 Glucose (Fingerstick) 158 mg/dL (70-99) 154 mg/dL (70-99) White Blood Count 4.0 x10^3/uL (4.0-11.0) Red Blood Count 4.81 x10^6/uL (4.30-5.70) Hemoglobin 16.6 g/dL (13.0-17.5) Hematocrit 46.7 % (39.0-53.0) Mean Corpuscular Volume 97 fL (79-100) Mean Corpuscular Hemoglobin 35 pg (25-35) Mean Corpuscular Hemoglobin Concent 36 g/dL (31-37) Red Cell Distribution Width 15.6 % (11.5-14.5) Platelet Count 34 x10^3/uL (140-400) Neutrophils (%) (Auto) 45 % (31-73) Lymphocytes (%) (Auto) 45 % (24-48) Monocytes (%) (Auto) 8 % (0-9) Eosinophils (%) (Auto) 2 % (0-3) Basophils (%) (Auto) 1 % (0-3) Neutrophils # (Auto) 1.8 x10^3uL (1.8-7.7) Lymphocytes # (Auto) 1.8 x10^3/uL (1.0-4.8) Monocytes # (Auto) 0.3 x10^3/uL (0.0-1.1) Eosinophils # (Auto) 0.1 x10^3/uL (0.0-0.7) Basophils # (Auto) 0.0 x10^3/uL (0.0-0.2) Sodium Level 134 mmol/L (136-145) Potassium Level 3.4 mmol/L (3.5-5.1) Chloride Level 99 mmol/L (98-107) Carbon Dioxide Level 27 mmol/L (21-32) Anion Gap 8 (6-14) Blood Urea Nitrogen 6 mg/dL (8-26) Creatinine 0.7 mg/dL (0.7-1.3) Estimated GFR (Cockcroft-Gault) 125.5 BUN/Creatinine Ratio 9 (6-20) Glucose Level 142 mg/dL (70-99) Calcium Level 8.1 mg/dL (8.5-10.1) Total Bilirubin 4.3 mg/dL (0.2-1.0) Aspartate Amino Transf (AST/SGOT) 151 U/L (15-37) Alanine Aminotransferase (ALT/SGPT) 122 U/L (16-63) Alkaline Phosphatase 165 U/L (46-116) Total Protein 8.1 g/dL (6.4-8.2) Albumin 3.2 g/dL (3.4-5.0) Albumin/Globulin Ratio 0.7 (1.0-1.7) Laboratory Tests Test 06/28/18 17:04 06/28/18 20:44 06/29/18 02:55 06/29/18 06:58 Glucose (Fingerstick) 155 mg/dL (70-99) 158 mg/dL (70-99) 154 mg/dL (70-99) White Blood Count 4.0 x10^3/uL (4.0-11.0) Red Blood Count 4.81 x10^6/uL (4.30-5.70) Hemoglobin 16.6 g/dL (13.0-17.5) Hematocrit 46.7 % (39.0-53.0) Mean Corpuscular Volume 97 fL (79-100) Mean Corpuscular Hemoglobin 35 pg (25-35) Mean Corpuscular Hemoglobin Concent 36 g/dL (31-37) Red Cell Distribution Width 15.6 % (11.5-14.5) Platelet Count 34 x10^3/uL (140-400) Neutrophils (%) (Auto) 45 % (31-73) Lymphocytes (%) (Auto) 45 % (24-48) Monocytes (%) (Auto) 8 % (0-9) Eosinophils (%) (Auto) 2 % (0-3) Basophils (%) (Auto) 1 % (0-3) Neutrophils # (Auto) 1.8 x10^3uL (1.8-7.7) Lymphocytes # (Auto) 1.8 x10^3/uL (1.0-4.8) Monocytes # (Auto) 0.3 x10^3/uL (0.0-1.1) Eosinophils # (Auto) 0.1 x10^3/uL (0.0-0.7) Basophils # (Auto) 0.0 x10^3/uL (0.0-0.2) Sodium Level 134 mmol/L (136-145) Potassium Level 3.4 mmol/L (3.5-5.1) Chloride Level 99 mmol/L (98-107) Carbon Dioxide Level 27 mmol/L (21-32) Anion Gap 8 (6-14) Blood Urea Nitrogen 6 mg/dL (8-26) Creatinine 0.7 mg/dL (0.7-1.3) Estimated GFR (Cockcroft-Gault) 125.5 BUN/Creatinine Ratio 9 (6-20) Glucose Level 142 mg/dL (70-99) Calcium Level 8.1 mg/dL (8.5-10.1) Total Bilirubin 4.3 mg/dL (0.2-1.0) Aspartate Amino Transf (AST/SGOT) 151 U/L (15-37) Alanine Aminotransferase (ALT/SGPT) 122 U/L (16-63) Alkaline Phosphatase 165 U/L (46-116) Total Protein 8.1 g/dL (6.4-8.2) Albumin 3.2 g/dL (3.4-5.0) Albumin/Globulin Ratio 0.7 (1.0-1.7) VTE Prophylaxis Ordered VTE Prophylaxis Devices: Yes VTE Pharmacological Prophylaxi: Yes Assessment/Plan Assessment/Plan Alcohol dependence Leukopenia and thronmbocytopenia in a heavy alcoholic-no bleeding Elevated LFTs secondary to above Mild hyponatremia Mild hypokalemia Hypomagnesemia in an alcoholic Plan: Mag sulfate 2 g IV now KCl 40 by mouth 1 now before discharge ETOH cessation gait steady, Librium on chart Multiple vitamins folate etc. ready to DC today Observation status MARÍA BRANNON MD Jun 29, 2018 12:03
--- NOTE | 2018-06-29 12:04 | PDOC3 ---
Discharge Summary Visit Information Date of Admission: Jun 28, 2018 Date of Discharge: Jun 29, 2018 Admitting Diagnosis Comment: Alcohol dependence Leukopenia and thronmbocytopenia in a heavy alcoholic-no bleeding Elevated LFTs secondary to above Mild hyponatremia Mild hypokalemia Hypomagnesemia in an alcoholic Final Diagnosis Problems Medical Problems: (1) Alcohol abuse Status: Acute (2) Liver enzyme elevation Status: Acute Brief Hospital Course Allergies Allergies Coded Allergies Type Severity Reaction Last Updated Verified No Known Drug Allergies 02/11/15 No Vital Signs Vital Signs Date Time Temp Pulse Resp B/P (MAP) Pulse Ox O2 Delivery O2 Flow Rate FiO2 06/29/18 10:57 98.0 75 16 145/85 (105) 97 Room Air 98.0 Lab Results Laboratory Tests Test 06/28/18 08:38 06/28/18 08:40 06/28/18 09:28 06/28/18 17:04 Prothrombin Time 18.0 SEC (11.7-14.0) Prothromb Time International Ratio 1.6 (0.8-1.1) Activated Partial Thromboplast Time 43 SEC (24-38) White Blood Count 3.2 x10^3/uL (4.0-11.0) Red Blood Count 4.89 x10^6/uL (4.30-5.70) Hemoglobin 16.5 g/dL (13.0-17.5) Hematocrit 46.8 % (39.0-53.0) Mean Corpuscular Volume 96 fL (79-100) Mean Corpuscular Hemoglobin 34 pg (25-35) Mean Corpuscular Hemoglobin Concent 35 g/dL (31-37) Red Cell Distribution Width 15.1 % (11.5-14.5) Platelet Count 39 x10^3/uL (140-400) Neutrophils (%) (Auto) 53 % (31-73) Lymphocytes (%) (Auto) 39 % (24-48) Monocytes (%) (Auto) 7 % (0-9) Eosinophils (%) (Auto) 0 % (0-3) Basophils (%) (Auto) 1 % (0-3) Neutrophils # (Auto) 1.7 x10^3uL (1.8-7.7) Lymphocytes # (Auto) 1.2 x10^3/uL (1.0-4.8) Monocytes # (Auto) 0.2 x10^3/uL (0.0-1.1) Eosinophils # (Auto) 0.0 x10^3/uL (0.0-0.7) Basophils # (Auto) 0.0 x10^3/uL (0.0-0.2) Sodium Level 134 mmol/L (136-145) Potassium Level 3.7 mmol/L (3.5-5.1) Chloride Level 97 mmol/L (98-107) Carbon Dioxide Level 25 mmol/L (21-32) Anion Gap 12 (6-14) Blood Urea Nitrogen 5 mg/dL (8-26) Creatinine 0.6 mg/dL (0.7-1.3) Estimated GFR (Cockcroft-Gault) 150.0 BUN/Creatinine Ratio 8 (6-20) Glucose Level 278 mg/dL (70-99) Calcium Level 7.7 mg/dL (8.5-10.1) Magnesium Level 1.7 mg/dL (1.8-2.4) Total Bilirubin 2.7 mg/dL (0.2-1.0) Aspartate Amino Transf (AST/SGOT) 165 U/L (15-37) Alanine Aminotransferase (ALT/SGPT) 133 U/L (16-63) Alkaline Phosphatase 198 U/L (46-116) Total Protein 8.3 g/dL (6.4-8.2) Albumin 3.4 g/dL (3.4-5.0) Albumin/Globulin Ratio 0.7 (1.0-1.7) Lipase 147 U/L (73-393) Ethyl Alcohol Level 107 mg/dL (0-10) Urine Collection Type Void Urine Color Hannah Urine Clarity Clear Urine pH 7.5 Urine Specific [place] 1.015 Urine Protein 100 mg/dL (NEG-TRACE) Urine Glucose (UA) 500 mg/dL (NEG) Urine Ketones (Stick) Negative mg/dL (NEG) Urine Blood Negative (NEG) Urine Nitrite Negative (NEG) Urine Bilirubin Negative (NEG) Urine Urobilinogen Dipstick 1.0 mg/dL (0.2 mg/dL) Urine Leukocyte Esterase Negative (NEG) Urine RBC 0 /HPF (0-2) Urine WBC Occ /HPF (0-4) Urine Bacteria 0 /HPF (0-FEW) Urine Opiates Screen Neg (NEG) Urine Methadone Screen Neg (NEG) Urine Barbiturates Neg (NEG) Urine Phencyclidine Screen Neg (NEG) Urine Amphetamine/Methamphetamine Neg (NEG) Urine Benzodiazepines Screen Neg (NEG) Urine Cocaine Screen Neg (NEG) Urine Cannabinoids Screen Neg (NEG) Urine Ethyl Alcohol Pos (NEG) Glucose (Fingerstick) 155 mg/dL (70-99) Test 06/28/18 20:44 06/29/18 02:55 06/29/18 06:58 Glucose (Fingerstick) 158 mg/dL (70-99) 154 mg/dL (70-99) White Blood Count 4.0 x10^3/uL (4.0-11.0) Red Blood Count 4.81 x10^6/uL (4.30-5.70) Hemoglobin 16.6 g/dL (13.0-17.5) Hematocrit 46.7 % (39.0-53.0) Mean Corpuscular Volume 97 fL (79-100) Mean Corpuscular Hemoglobin 35 pg (25-35) Mean Corpuscular Hemoglobin Concent 36 g/dL (31-37) Red Cell Distribution Width 15.6 % (11.5-14.5) Platelet Count 34 x10^3/uL (140-400) Neutrophils (%) (Auto) 45 % (31-73) Lymphocytes (%) (Auto) 45 % (24-48) Monocytes (%) (Auto) 8 % (0-9) Eosinophils (%) (Auto) 2 % (0-3) Basophils (%) (Auto) 1 % (0-3) Neutrophils # (Auto) 1.8 x10^3uL (1.8-7.7) Lymphocytes # (Auto) 1.8 x10^3/uL (1.0-4.8) Monocytes # (Auto) 0.3 x10^3/uL (0.0-1.1) Eosinophils # (Auto) 0.1 x10^3/uL (0.0-0.7) Basophils # (Auto) 0.0 x10^3/uL (0.0-0.2) Sodium Level 134 mmol/L (136-145) Potassium Level 3.4 mmol/L (3.5-5.1) Chloride Level 99 mmol/L (98-107) Carbon Dioxide Level 27 mmol/L (21-32) Anion Gap 8 (6-14) Blood Urea Nitrogen 6 mg/dL (8-26) Creatinine 0.7 mg/dL (0.7-1.3) Estimated GFR (Cockcroft-Gault) 125.5 BUN/Creatinine Ratio 9 (6-20) Glucose Level 142 mg/dL (70-99) Calcium Level 8.1 mg/dL (8.5-10.1) Total Bilirubin 4.3 mg/dL (0.2-1.0) Aspartate Amino Transf (AST/SGOT) 151 U/L (15-37) Alanine Aminotransferase (ALT/SGPT) 122 U/L (16-63) Alkaline Phosphatase 165 U/L (46-116) Total Protein 8.1 g/dL (6.4-8.2) Albumin 3.2 g/dL (3.4-5.0) Albumin/Globulin Ratio 0.7 (1.0-1.7) Laboratory Tests Test 06/28/18 17:04 06/28/18 20:44 06/29/18 02:55 06/29/18 06:58 Glucose (Fingerstick) 155 mg/dL (70-99) 158 mg/dL (70-99) 154 mg/dL (70-99) White Blood Count 4.0 x10^3/uL (4.0-11.0) Red Blood Count 4.81 x10^6/uL (4.30-5.70) Hemoglobin 16.6 g/dL (13.0-17.5) Hematocrit 46.7 % (39.0-53.0) Mean Corpuscular Volume 97 fL (79-100) Mean Corpuscular Hemoglobin 35 pg (25-35) Mean Corpuscular Hemoglobin Concent 36 g/dL (31-37) Red Cell Distribution Width 15.6 % (11.5-14.5) Platelet Count 34 x10^3/uL (140-400) Neutrophils (%) (Auto) 45 % (31-73) Lymphocytes (%) (Auto) 45 % (24-48) Monocytes (%) (Auto) 8 % (0-9) Eosinophils (%) (Auto) 2 % (0-3) Basophils (%) (Auto) 1 % (0-3) Neutrophils # (Auto) 1.8 x10^3uL (1.8-7.7) Lymphocytes # (Auto) 1.8 x10^3/uL (1.0-4.8) Monocytes # (Auto) 0.3 x10^3/uL (0.0-1.1) Eosinophils # (Auto) 0.1 x10^3/uL (0.0-0.7) Basophils # (Auto) 0.0 x10^3/uL (0.0-0.2) Sodium Level 134 mmol/L (136-145) Potassium Level 3.4 mmol/L (3.5-5.1) Chloride Level 99 mmol/L (98-107) Carbon Dioxide Level 27 mmol/L (21-32) Anion Gap 8 (6-14) Blood Urea Nitrogen 6 mg/dL (8-26) Creatinine 0.7 mg/dL (0.7-1.3) Estimated GFR (Cockcroft-Gault) 125.5 BUN/Creatinine Ratio 9 (6-20) Glucose Level 142 mg/dL (70-99) Calcium Level 8.1 mg/dL (8.5-10.1) Total Bilirubin 4.3 mg/dL (0.2-1.0) Aspartate Amino Transf (AST/SGOT) 151 U/L (15-37) Alanine Aminotransferase (ALT/SGPT) 122 U/L (16-63) Alkaline Phosphatase 165 U/L (46-116) Total Protein 8.1 g/dL (6.4-8.2) Albumin 3.2 g/dL (3.4-5.0) Albumin/Globulin Ratio 0.7 (1.0-1.7) Brief Hospital Course Mr. 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 Admitted because of alcohol abuse. seems frustrated, she claims to me "who knows maybe he drinks more than 100 beers a day!". Denies rec drug use or signif cigarettes. Labs remarkable for signs of chronic alcoholism including white count of 4, platelets 34 but no bleeding, AST ALT in the high 100s, GI consulted advised alcohol cessation and a PPI. Also mild hyponatremia 134 with mild hypokalemia 3.4. Magnesium slightly low 1.7 I'm replacing. Gait steady, no more shaking. I started MVI thiamine folate and MVI Rx on chart. Gait steady. Okay to discharge with alcohol cessation done today one-on-one. Discharge Information Condition at Discharge: Improved, Stable Disposition/Orders: D/C to Home Scheduled Folic Acid (Folic Acid) 1 Mg Tablet, 1 MG PO DAILY for 30 Days, #30 Prescribed by: MARÍA BRANNON on 06/29/18 1156 Lisinopril (Lisinopril) 10 Mg Tablet, 1 TAB PO DAILY, #30 Ref 5 (Reported) Entered as Reported by: NARCISO RIVERA RN on 06/28/181931 Last Taken: Unknown Dose on 06/28/18 Last Action: Continued on 06/28/182007 by ALEX HAM Multivits,Ca,Minerals/Iron/Fa (Thera-M Tablet) 1 Each Tablet, 1 TAB PO DAILY for 30 Days, #30 Prescribed by: MARÍA BRANNON on 06/29/18 1156 Nph, Human Insulin Isophane (Novolin N) 100 Unit/1 Ml Vial, 25 UNIT SQ BID, ( Reported) Entered as Reported by: NARCISO RIVERA RN on 06/28/181931 Last Taken: Unknown Dose on 06/28/18 0800 Last Action: Converted on 2007 by ALEX HAM Thiamine Mononitrate (Vitamin B-1) 100 Mg Tablet, 100 MG PO DAILY for 30 Days, # 30 Prescribed by: MARÍA BRANNON on 06/29/18 1156 Scheduled PRN Chlordiazepoxide Hcl (Chlordiazepoxide Hcl) 25 Mg Capsule, 25 MG PO PRN Q6HRS PRN for ANXIETY / AGITATION for 30 Days Prescribed by: MARÍA BRANNON on 06/29/18 1156 MARÍA BRANNON MD Jun 29, 2018 12:04
--- NOTE | 2018-06-29 14:15 | PDOC ---
Subjective: Subjective: Feeling better, hoping to go home. present w/ 8 month old son. Objective: Vital Signs: Vital Signs Date Time Temp Pulse Resp B/P (MAP) Pulse Ox O2 Delivery O2 Flow Rate FiO2 06/29/18 10:57 98.0 75 16 145/85 (105) 97 Room Air 98.0 Labs: Laboratory Tests Test 06/28/18 17:04 06/28/18 20:44 06/29/18 02:55 06/29/18 06:58 Glucose (Fingerstick) 155 mg/dL 158 mg/dL 154 mg/dL White Blood Count 4.0 x10^3/uL Red Blood Count 4.81 x10^6/uL Hemoglobin 16.6 g/dL Hematocrit 46.7 % Mean Corpuscular Volume 97 fL Mean Corpuscular Hemoglobin 35 pg Mean Corpuscular Hemoglobin Concent 36 g/dL Red Cell Distribution Width 15.6 % Platelet Count 34 x10^3/uL Neutrophils (%) (Auto) 45 % Lymphocytes (%) (Auto) 45 % Monocytes (%) (Auto) 8 % Eosinophils (%) (Auto) 2 % Basophils (%) (Auto) 1 % Neutrophils # (Auto) 1.8 x10^3uL Lymphocytes # (Auto) 1.8 x10^3/uL Monocytes # (Auto) 0.3 x10^3/uL Eosinophils # (Auto) 0.1 x10^3/uL Basophils # (Auto) 0.0 x10^3/uL Sodium Level 134 mmol/L Potassium Level 3.4 mmol/L Chloride Level 99 mmol/L Carbon Dioxide Level 27 mmol/L Anion Gap 8 Blood Urea Nitrogen 6 mg/dL Creatinine 0.7 mg/dL Estimated GFR (Cockcroft-Gault) 125.5 BUN/Creatinine Ratio 9 Glucose Level 142 mg/dL Calcium Level 8.1 mg/dL Total Bilirubin 4.3 mg/dL Aspartate Amino Transf (AST/SGOT) 151 U/L Alanine Aminotransferase (ALT/SGPT) 122 U/L Alkaline Phosphatase 165 U/L Total Protein 8.1 g/dL Albumin 3.2 g/dL Albumin/Globulin Ratio 0.7 Test 06/29/18 11:59 Glucose (Fingerstick) 221 mg/dL PE: GEN: NAD LUNGS: CTAB HEART: RRR ABD: NABS, S/ND/NT NEURO/PSYCH: A & O 3 A/P: Alcohol abuse/alcoholic liver disease -bili worse today, CBD normal on US -- Says he's going to stop drinking, has DC orders. FRANNY REY Jun 29, 2018 14:15
[2018-06-29 14:55] VITALS: BP 130/81
[2018-06-30] MEDS ORDERED: POTASSIUM CHLORIDE 20 MEQ TABLET.ER. PO SCH (08:00)
== END 2018-06-29 18:30 | disposition home or self-care (01) | DRG 433 ==
LOC: ER 07:58 → 6 SOUTH 11:11
PROVIDERS: ADMIT Internal Medicine; ATTEND Internal Medicine
DX: K70.9 Alcoholic liver disease, unspecified (principal); E87.1 Hypo-osmolality and hyponatremia; D68.9 Coagulation defect, unspecified; E87.6 Hypokalemia; E83.42 Hypomagnesemia; I10 Essential (primary) hypertension; E11.9 Type 2 diabetes mellitus without complications; F10.20 Alcohol dependence, uncomplicated; D72.819 Decreased white blood cell count, unspecified; D69.6 Thrombocytopenia, unspecified; Z79.4 Long term (current) use of insulin; K76.0 Fatty (change of) liver, not elsewhere classified
CPT/HCPCS: 36415; 76700; 80053; 80307; 81001; 82962; 83690; 83735; 85025; 85610; 85730; 93005; 96374; 96375; G0480; J1815; J2405; J3010; J3475; S0028; 99285-25; G0479